=== PATIENT | male | born 1980 | race Caucasian/White ===

== ENCOUNTER 2017-07-23 10:35 | Emergency (ER) | payer OTHER ==
[~2017-07-23] VITALS: Ht 177.8 cm; Wt 78.5 kg
[2017-07-23 10:59] VITALS: TEMP 36.5; Ht 177.8 cm; Wt 78.5 kg
[2017-07-23] MEDS ORDERED: TRAMADOL HCL 50 MG TAB PO STA (11:26)
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
[2017-07-23] MEDS ORDERED: TRAM-10 PO (12:31)
[2017-07-23 13:00] VITALS: BP 139/89; PULSE 70; O2SAT 98
== END 2017-07-23 13:02 | disposition home or self-care (01) ==
LOC: C.EDB 10:37 → C.EDD 13:02
DX: M79.661 Pain in right lower leg (principal)